=== PATIENT | male | born 1955 | race Caucasian/White ===

== ENCOUNTER 2019-09-16 09:36 | Emergency (ER) | payer OTHER, SELFPAY ==
--- NOTE | 2019-09-16 11:06 | EDM.PDOC ---
ED HPI GENERAL MEDICAL PROBLEM - General Chief Complaint: Skin Complaint Stated Complaint: POSSIBLE BLOOD CLOT IN L LEG Time Seen by Provider: 09/16/19 10:03 Source of Information: Reports: Patient - History of Present Illness INITIAL COMMENTS - FREE TEXT/NARRATIVE: 63-year-old with history of varicose veins who presents with concerns of a swollen, hard, painful area of his left lower calf. He recently returned from a road trip to [place]. He noticed this when he got home. He has no history of DVT. He has no dyspnea or chest pain. Left Leg Pain Score (Numeric/FACES): 1 - Related Data Allergies Allergy/AdvReac Type Severity Reaction Status Date / Time azithromycin [From Zithromax] Allergy Hives Verified 09/16/19 09:49 zinc Allergy Itching Verified 09/16/19 09:49 Home Meds: Home Meds NK [No Known Home Meds] 09/16/19 [History] Past Medical History HEENT History: Reports: Impaired Vision Gastrointestinal History: Reports: None Musculoskeletal History: Reports: Fracture Dermatologic History: Reports: Psoriasis - Infectious Disease History Infectious Disease History: Reports: Chicken Pox - Past Surgical History GI Surgical History: Reports: Hernia, Inguinal Social & Family History - Family History Family Medical History: Noncontributory - Tobacco Use Smoking Status *Q: Never Smoker Second Hand Smoke Exposure: No - Caffeine Use Caffeine Use: Reports: Soda - Recreational Drug Use Recreational Drug Use: No ED ROS GENERAL - Review of Systems Review Of Systems: See Below Constitutional: Reports: No Symptoms HEENT: Reports: No Symptoms Respiratory: Reports: No Symptoms Cardiovascular: Reports: No Symptoms Endocrine: Reports: No Symptoms GI/Abdominal: Reports: No Symptoms : Reports: No Symptoms Musculoskeletal: Reports: No Symptoms Skin: Reports: Erythema Neurological: Reports: No Symptoms Psychiatric: Reports: No Symptoms Hematologic/Lymphatic: Reports: No Symptoms Immunologic: Reports: No Symptoms ED EXAM, SKIN/RASH Exam: See Below Exam Limited By: No Limitations General Appearance: Alert, No Apparent Distress Ears: Normal External Exam Nose: Normal Inspection Throat/Mouth: Normal Inspection Head: Atraumatic, Normocephalic Neck: Normal Inspection Respiratory/Chest: Lungs Clear Cardiovascular: Regular Rate, Rhythm GI/Abdominal: Soft, Non-Tender Back Exam: Normal Inspection Extremities: Other (Palpable superficial vein thrombosis of the left distal calf. Mild surrounding erythema.) Neurological: Alert, Oriented Psychiatric: Normal Affect, Normal Mood Skin: Warm, Dry Course - Vital Signs Last Recorded V/S: Last Vital Signs Temp 36.7 C 09/16/19 09:54 Pulse 78 09/16/19 09:54 Resp 16 09/16/19 09:54 BP 121/69 09/16/19 09:54 Pulse Ox 97 09/16/19 09:54 - Orders/Labs/Meds Orders: Active Orders 24 hr Category Date Time Status VL Duplex Lwr Ext Veins Ltd Lt [US] Stat Exams 09/16/19 10:20 Taken - Re-Assessments/Exams Free Text/Narrative Re-Assessment/Exam: 63-year-old presents with concerns of left lower extremity swelling and discomfort. Recent return from a prolonged road trip. On exam appeared to have a thrombosed varicose vein. Given his prolonged immobilization we did perform an ultrasound to ensure he did not have extension into DVT. This is preliminarily negative. Discussed wearing BROCK stockings when he is immobilized or driving. Will use warm compresses to relieve discomfort. Discharge. 09/16/19 11:21 Departure - Departure Time of Disposition: 11:04 Disposition: Home, Self-Care 01 Clinical Impression: Acute superficial venous thrombosis of left lower extremity - Discharge Information Instructions: Thrombophlebitis Referrals: PCP,None [Primary Care Provider] - Forms: ED Department Discharge Additional Instructions: Please apply hot packs to the affected area of your leg to relieve the discomfort. Your ultrasound was re-assuring that there is not a serious deep blood clot. Sepsis Event Note - Evaluation Sepsis Screening Result: No Definite Risk - Focused Exam Vital Signs: Vital Signs Temp Pulse Resp BP Pulse Ox 09/16/19 09:54 36.7 C 78 16 121/69 97 Date Exam was Performed: 09/16/19 Time Exam was Performed: 11:17 - My Orders Last 24 Hours: My Active Orders 09/16/19 10:20 Duplex Lwr Ext Veins Ltd Lt [US] Stat - Assessment/Plan Last 24 Hours: My Active Orders 09/16/19 10:20 Duplex Lwr Ext Veins Ltd Lt [US] Stat
--- NOTE | 2019-09-17 11:00 | US ---
VL Duplex Lwr Ext Veins Ltd Lt INDICATION: Swelling, concern for DVT FINDINGS: Ultrasound examination of the lower extremity using Doppler and compressive technique demonstrates that the common femoral, femoral, and popliteal veins are patent, and negative for thrombus. The calf veins were segmentally visualized and are negative where seen. There is some thrombosis in the lower calf portion of the greater saphenous vein IMPRESSION: Negative for deep venous thrombosis. Superficial thrombosis in the greater saphenous in the lower calf
== END 2019-09-16 11:13 | disposition home or self-care (01) ==
LOC: JP.ED 09:36
DX: I82.812 Embolism and thrombosis of superficial veins of left lower extremity (principal); Z88.1 Allergy status to other antibiotic agents
CPT/HCPCS: 93971-26-LT; 93971-LT; 99283-25

== ENCOUNTER 2019-10-07 18:41 | Emergency (ER) | payer OTHER, SELFPAY ==
--- NOTE | 2019-10-07 19:20 | EDM.PDOC ---
ED HPI GENERAL MEDICAL PROBLEM - General Chief Complaint: General Stated Complaint: DIZZY,BLURRED VISION,BLOOD CLOT IN LEG Time Seen by Provider: 10/07/19 19:00 Source of Information: Reports: Patient History Limitations: Reports: No Limitations - History of Present Illness INITIAL COMMENTS - FREE TEXT/NARRATIVE: 63-year-old male with sudden onset of diplopia within the last hour and a half, no head trauma. He was recently diagnosed with superficial thrombophlebitis of the right lower extremity and is concerned he is having a stroke. He has no headache but does feel somewhat dizzy. He was just sitting watching TV when he suddenly felt his left eye being "pulled" and now he cannot focus without developing [id number] double vision. He has no pain, no fever, no facial pressure or shortness of breath. He was not started on anticoagulants for the superficial thrombophlebitis, only Tylenol. He has never had this in the past. Onset: Sudden Duration: Hour(s): (Within the last 2 hours) Associated Symptoms: Reports: Other (Mild dizziness, no headache or fever) Back Pain Score (Numeric/FACES): 7 - Related Data Allergies Allergy/AdvReac Type Severity Reaction Status Date / Time azithromycin [From Zithromax] Allergy Hives Verified 09/16/19 09:49 zinc Allergy Itching Verified 09/16/19 09:49 Home Meds: Home Meds Acetaminophen [Tylenol] 1,000 mg PO TID 10/07/19 [History] Aspirin 81 mg PO DAILY 10/07/19 [History] Past Medical History HEENT History: Reports: Impaired Vision Gastrointestinal History: Reports: None Musculoskeletal History: Reports: Fracture Hematologic History: Reports: Other (See Below) Other Hematologic History: dvt Dermatologic History: Reports: Psoriasis - Infectious Disease History Infectious Disease History: Reports: Chicken Pox - Past Surgical History GI Surgical History: Reports: Hernia, Inguinal Social & Family History - Family History Family Medical History: Noncontributory - Tobacco Use Smoking Status *Q: Never Smoker - Caffeine Use Caffeine Use: Reports: None - Recreational Drug Use Recreational Drug Use: No ED ROS GENERAL - Review of Systems Review Of Systems: See Below Constitutional: Denies: Fever, Chills HEENT: Reports: Vision Change Respiratory: Denies: Shortness of Breath Cardiovascular: Denies: Chest Pain GI/Abdominal: Denies: Abdominal Pain, Nausea, Vomiting ED EXAM, GENERAL - Physical Exam Exam: See Below Exam Limited By: No Limitations General Appearance: Alert, No Apparent Distress Eye Exam: Bilateral Eye: PERRL, Other (Left eye is weak medially causing double vision) Respiratory/Chest: No Respiratory Distress, Lungs Clear Cardiovascular: Regular Rate, Rhythm Neurological: Alert, Oriented. No: Abnormal Gait Psychiatric: Normal Affect, Normal Mood Skin Exam: Warm, Dry Course - Vital Signs Last Recorded V/S: Last Vital Signs Temp 96.5 F L 10/07/19 18:55 Pulse 88 10/07/19 18:55 Resp 16 10/07/19 18:55 BP 147/76 H 10/07/19 18:55 Pulse Ox 98 10/07/19 18:55 - Orders/Labs/Meds Labs: Laboratory Tests 10/07/19 10/07/19 Range/Units 19:48 19:48 WBC 7.7 (4.5-11.0) K/uL RBC 5.18 (4.30-5.90) M/uL Hgb 15.6 H (12.0-15.0) g/dL Hct 45.7 (40.0-54.0) % MCV 88 (80-98) fL MCH 30 (27-31) pg MCHC 34 (32-36) % Plt Count 277 (150-400) K/uL Neut % (Auto) 70 H (36-66) % Lymph % (Auto) 22 L (24-44) % Garrard % (Auto) 6 (2-6) % Eos % (Auto) 2 (2-4) % Baso % (Auto) 0 (0-1) % Sodium 140 (140-148) mmol/L Potassium 3.8 (3.6-5.2) mmol/L Chloride 104 (100-108) mmol/L Carbon Dioxide 27 (21-32) mmol/L Anion Gap 9.1 (5.0-14.0) mmol/L BUN 28 H (7-18) mg/dL Creatinine 1.1 (0.8-1.3) mg/dL Est Cr Clr Drug Dosing 62.59 mL/min Estimated GFR (MDRD) > 60 (>60) Glucose 99 (74-106) mg/dL Calcium 8.8 (8.5-10.1) mg/dL Total Bilirubin 0.5 (0.2-1.0) mg/dL AST 21 (15-37) U/L ALT 30 (12-78) U/L Alkaline Phosphatase 43 L (46-116) U/L Total Protein 6.6 (6.4-8.2) g/dL Albumin 3.4 (3.4-5.0) g/dL Globulin 3.2 (2.3-3.5) g/dL Albumin/Globulin Ratio 1.1 L (1.2-2.2) - Re-Assessments/Exams Free Text/Narrative Re-Assessment/Exam: 10/07/19 19:51 CT of the head was done which was negative. Objective findings and subjective symptoms were explained to neurology and it was felt this patient likely has a brainstem lesion or stroke. An urgent MRI was recommended, and after consulting with Dr. Gibson in the emergency room at [facility], transfer was arranged. CBC and CMP were drawn. 10/07/19 20:46 IMPRESSION: 1. No acute findings. 2. Nonspecific white matter disease, typical of chronic microvascular disease. CBC and CMP were generally unremarkable on normal. Patient was stable without significant improvement but not worsening at discharge. Departure - Departure Time of Disposition: 20:15 Disposition: DC/Tfer to Other 70 Clinical Impression: Double vision - Discharge Information Referrals: Bronson Velasquez MD [Primary Care Provider] - Forms: ED Department Discharge Care Plan Goals: Patient is to be transferred to [facility] in [place] as a stroke protocol to assess brainstem function due to acute double vision. Sepsis Event Note - Evaluation Sepsis Screening Result: No Definite Risk - Focused Exam Vital Signs: Vital Signs Temp Pulse Resp BP Pulse Ox 10/07/19 18:55 96.5 F L 88 16 147/76 H 98 10/07/19 18:46 96.5 F L 88 16 147/76 H 98 Date Exam was Performed: 10/07/19 Time Exam was Performed: 20:45
--- NOTE | 2019-10-07 19:45 | CRLCT ---
INDICATION: Double vision TECHNIQUE: Head CT without contrast. COMPARISON: None FINDINGS: CSF spaces: Within normal limits for age. Brain parenchyma: There are nonspecific low attenuation white matter changes consistent with chronic microvascular disease. No sign of mass, hemorrhage, or midline shift. Skull base and calvarium: The visualized paranasal sinuses and mastoid air cells demonstrate no acute or significant findings. The visualized orbits are grossly unremarkable. No skull fractures. There is intracranial atherosclerosis. IMPRESSION: 1. No acute findings. 2. Nonspecific white matter disease, typical of chronic microvascular disease. Please note that all CT scans at this facility use dose modulation, iterative reconstruction, and/or weight-based dosing when appropriate to reduce radiation dose to as low as reasonably achievable. Dictated by Diann Williamson MD @ Oct 07 2019 7:42PM Signed by Dr. Diann Williamson @ Oct 07 2019 7:44PM
== END 2019-10-07 20:38 | disposition other institution (70) ==
LOC: JP.ED 18:41
DX: H53.2 Diplopia (principal); Z88.1 Allergy status to other antibiotic agents; Z91.048 Other nonmedicinal substance allergy status
CPT/HCPCS: 36415; 70450; 80053; 85025; 99285-25

== ENCOUNTER 2022-07-12 08:48 | Day surgery (SDC) | payer MEDICARE, OTHER, SELFPAY ==
[~2022-07-12 08:48] MED LIST: Lactated Ringers 1,000 ML IV SCH; Propofol 200 MG/20 ML SDV ONE; fentaNYL 50 MCG/ML SDV ONE
[2022-07-12] MEDS ORDERED: Propofol 200 MG/20 ML SDV ONE (09:35)
[2022-07-12] MEDS ORDERED: fentaNYL 50 MCG/ML SDV ONE (09:35)
[2022-07-12] MEDS ORDERED: Midazolam 1 MG/ML 2 ML SDV ONE (09:35)
== END 2022-07-12 11:17 | disposition home or self-care (01) ==
LOC: JP.SDS 08:48
PROVIDERS: ATTEND Student in an Organized Health Care Education/Training Program
DX: K21.00 Gastro-esophageal reflux disease with esophagitis, without bleeding (principal); K29.50 Unspecified chronic gastritis without bleeding; K44.9 Diaphragmatic hernia without obstruction or gangrene; K29.80 Duodenitis without bleeding; Z79.899 Other long term (current) drug therapy; Z88.1 Allergy status to other antibiotic agents; Z91.048 Other nonmedicinal substance allergy status
CPT/HCPCS: 43239; J2250; J2704; J3010; J7120